=== PATIENT | female | born 1995 ===

== ENCOUNTER 2019-10-23 20:06 | Emergency (ER) | payer BC ==
[2019-10-23 20:41] VITALS: BP 110/62
[2019-10-23] MEDS ORDERED: ONDANSETRON 4 MG/2 ML INJ IV ONE (20:58)
[2019-10-23] MEDS ORDERED: SODIUM CHLORIDE 0.9% 1000 ML 1,000 ML IV ONE (20:58)
[2019-10-23] MEDS ORDERED: KETOROLAC 30 MG/1 ML INJ IV ONE (20:58)
[2019-10-23 21:27] LABS: Bacteria,Urine 2+ /HPF (Negative); Bilirubin,Urine NEG (Negative); Blood,Urine MOD (Negative); Color,Urine Yellow (Yellow); Mucus,Urine 3+ /HPF; Urobilinogen,Urine < 2.0 mg/dL (<2.0); WBC,Urine > 182.0 /HPF (0.0-6.0)
[2019-10-23 21:29] LABS: HCG Qualitative,Urine Negative (Negative)
[2019-10-23] MEDS ORDERED: cefTRIAXone/NS 1 GM/50 ML 1 GM/50 ML BAG IV ONE (21:45)
[2019-10-23] MEDS ORDERED: ACETAMINOPHEN 500 MG TAB PO ONE (21:45)
[2019-10-23 21:56] LABS: Basophils % (Auto) 0.4 % (0.0-1.8); Eosinophils % (Auto) 0.2 % (0.0-4.3); Hematocrit 37.7 % (30.3-42.9); Hemoglobin 12.8 gm/dl (10.1-14.3); Lymphocytes # (Auto) 1.3 K/mm3 (1.2-5.4); Lymphocytes % (Auto) 11.5 % (13.4-35.0); Mean Corpuscular HGB Conc 34 % (30-34); Mean Corpuscular Volume 95 fl (79-97); Monocytes # (Auto) 1.1 K/mm3 (0.0-0.8); Monocytes % (Auto) 9.4 % (0.0-7.3); Platelet Count 252 K/mm3 (140-440); Red Blood Count 3.97 M/mm3 (3.65-5.03); Red Cell Distribution Width 13.1 % (13.2-15.2)
[2019-10-23 22:31] LABS: Alanine Aminotransferase 11 units/L (7-56); Albumin 4.3 g/dL (3.9-5); BUN/Creatinine Ratio 17; Blood Urea Nitrogen 10 mg/dL (7-17); Calcium 9.1 mg/dL (8.4-10.2); Hemolysis Index 3
--- NOTE | 2019-10-23 23:54 | Emergency Department Report ---
ED Female HPI - General Chief complaint: Urogenital-Female Stated complaint: LOWER BACK PAIN Source: patient Mode of arrival: Ambulatory Limitations: No Limitations - History of Present Illness Initial comments: Patient is a nulliparous 24-year-old female with a heavy tobacco smoker, smoking up to 3 cigars/day, presents to the ED with complaint of acute onset persistent pelvic pressure and pain that radiates to the lower back with dysuria, urinary frequency and urgency, vaginal discharge, diffuse body aches and pains, chills and fever for 4 days. Patient denies vaginal bleeding, diarrhea, vomiting, chest pain or shortness of breath, nasal and sinus congestion, sore throat, cough, dizziness or syncope or vision changes. MD Complaint: vaginal discharge, dysuria, pelvic pain, other (urinary urgency and frequency; Low back pain) -: Sudden, days(s) (4) Location: suprapubic, other (lower back) Radiation: suprapubic, other (lower back) Severity: severe Severity scale (0 -10): 7 Quality: cramping, sharp Consistency: constant Improves with: none Worsens with: urination Are you Now?: No Last Menstrual Period: 10/18/19 EDC: 07/24/20 Associated Symptoms: denies other symptoms, vaginal discharge, abdominal pain (suprapubic), fever/chills, headaches, loss of appetite, dysuria. denies: vaginal bleeding, nausea/vomiting, hematuria, rash, seizure, shortness of breath, syncope, weakness, other - Related Data Sexually active: Yes : 0 Para: 0 A: 0 Previous Rx's Medication Instructions Recorded Last Taken Type Ibuprofen [Motrin 600 MG tab] 600 mg PO Q8H PRN #20 tablet 04/09/19 Unknown Rx Nitrofurantoin [place]/M-Cryst 100 mg PO Q12HR #14 capsule 04/09/19 Unknown Rx [Macrobid CAP] Ibuprofen [Motrin] 600 mg PO Q8H PRN #24 tablet 10/24/19 Unknown Rx Ondansetron [Zofran Odt] 4 mg PO Q6HR PRN #15 tab.rapdis 10/24/19 Unknown Rx cephALEXin [Keflex] 500 mg PO Q6HR #40 capsule 10/24/19 Unknown Rx metroNIDAZOLE [Flagyl] 500 mg PO Q12HR #14 tab 10/24/19 Unknown Rx Allergies Allergy/AdvReac Type Severity Reaction Status Date / Time No Known Allergies Allergy Verified 10/23/19 20:37 ED Review of Systems ROS: Stated complaint: LOWER BACK PAIN Other details as noted in HPI Constitutional: chills, fever, malaise Eyes: denies: eye pain, eye discharge, vision change ENT: denies: ear pain, throat pain Respiratory: denies: cough, shortness of breath, wheezing Cardiovascular: denies: chest pain, palpitations Endocrine: no symptoms reported Gastrointestinal: abdominal pain (suprapubic), nausea. denies: diarrhea Genitourinary: urgency, dysuria, discharge, other (suprapubic pain). denies: abnormal menses, dyspareunia Musculoskeletal: back pain (lower), arthralgia, myalgia. denies: joint swelling Skin: denies: rash, lesions Neurological: denies: headache, weakness, paresthesias Psychiatric: denies: anxiety, depression Hematological/Lymphatic: denies: easy bleeding, easy bruising ED Past Medical Hx - Past Medical History Previous Medical History?: No - Surgical History Past Surgical History?: No - Social History Smoking Status: Current Every Day Smoker Substance Use Type: Marijuana - Medications Home Medications: Home Medications Medication Instructions Recorded Confirmed Last Taken Type Ibuprofen [Motrin 600 MG tab] 600 mg PO Q8H PRN #20 tablet 04/09/19 Unknown Rx Nitrofurantoin [place]/M-Cryst 100 mg PO Q12HR #14 capsule 04/09/19 Unknown Rx [Macrobid CAP] Ibuprofen [Motrin] 600 mg PO Q8H PRN #24 tablet 10/24/19 Unknown Rx Ondansetron [Zofran Odt] 4 mg PO Q6HR PRN #15 tab.rapdis 10/24/19 Unknown Rx cephALEXin [Keflex] 500 mg PO Q6HR #40 capsule 10/24/19 Unknown Rx metroNIDAZOLE [Flagyl] 500 mg PO Q12HR #14 tab 10/24/19 Unknown Rx ED Physical Exam - General Limitations: No Limitations General appearance: alert, in no apparent distress - Head Head exam: Present: atraumatic, normocephalic, normal inspection - Eye Eye exam: Present: normal appearance, PERRL, EOMI - ENT ENT exam: Present: normal exam, normal orophraynx, mucous membranes moist, TM's normal bilaterally, normal external ear exam - Neck Neck exam: Present: normal inspection, full ROM. Absent: tenderness, lymphadenopathy - Respiratory Respiratory exam: Present: normal lung sounds bilaterally. Absent: respiratory distress, wheezes, rales, chest wall tenderness - Cardiovascular Cardiovascular Exam: Present: normal rhythm, tachycardia, normal heart sounds. Absent: systolic murmur, diastolic murmur, rubs, gallop - GI/Abdominal GI/Abdominal exam: Present: soft, tenderness (Mild suprapubic tenderness), normal bowel sounds. Absent: guarding, rebound, hyperactive bowel sounds, hypoactive bowel sounds, organomegaly - Bi-manual exam: Present: other (Pelvic exam deferred) - Extremities Exam Extremities exam: Present: normal inspection, full ROM, normal capillary refill - Back Exam Back exam: Present: normal inspection, full ROM. Absent: tenderness, CVA tenderness (R), muscle spasm, paraspinal tenderness, vertebral tenderness - Neurological Exam Neurological exam: Present: alert, oriented X3, CN II-XII intact, normal gait, reflexes normal - Psychiatric Psychiatric exam: Present: normal affect, normal mood - Skin Skin exam: Present: warm, dry, intact, normal color. Absent: rash ED Course Vital Signs 10/23/19 10/23/19 20:36 21:58 Temperature 100.7 F H Pulse Rate 95 H Respiratory 18 20 Rate Blood Pressure 110/62 O2 Sat by Pulse 99 Oximetry ED Medical Decision Making - Lab Data Result diagrams: 10/23/19 21:38 10/23/19 21:38 - Medical Decision Making This is a nulliparous 24-year-old female with a heavy tobacco smoker, smoking up to 3 cigars/day, presents to the ED with complaint of acute onset persistent pelvic pressure and pain that radiates to the lower back with dysuria, nausea, urinary frequency and urgency, vaginal discharge, diffuse body aches and pains, chills and fever for 4 days. In the ED, patient is alert and oriented x3 and is not in any distress but febrile and tachycardic in triage. Urinalysis shows significant urinary tract infection characterized by large leukocyte esterase, positive nitrites and > 182 WBCs and 2+ bacteria in the urine. The wet prep shows significant Gardnerella vaginalis, and other lab test results are nonactionable except for acute leukocytosis of 11,600. Patient received antipyretic in the ED, also received normal saline 1 L IV bolus x1, Rocephin 1 g IV and Toradol for pain and antiemetic Zofran 4 mg IV x1. On reevaluation, patient's pain is well controlled with medications, fever has resolved and tachycardia has also resolved. Patient was discharged home on medications including antibiotics and pain medications based on the finding of significant acute urinary tract infection and low-grade fever. Patient was advised to follow-up with her primary care physician or [facility] physician in 7 to 10 days for reevaluation or return to the ED immediately if symptoms get worse. - Differential Diagnosis UTI; PID; Pyelonephritis; Colitis; URI; Bronchitis; Pneumonia Critical care attestation.: If time is entered above; I have spent that time in minutes in the direct care of this critically ill patient, excluding procedure time. ED Disposition Clinical Impression: Fever with chills, Acute urinary tract infection, Bacterial vaginosis Abdominal pain Qualifiers: Abdominal location: lower abdomen, unspecified Qualified Code(s): R10.30 - Lower abdominal pain, unspecified Disposition: DC- TO HOME OR SELFCARE Is pt being admited?: No Does the pt Need Aspirin: No Condition: Stable Instructions: Bacterial Vaginosis (ED), Urinary Tract Infection in Women (ED), Fever in Adults (ED), Abdominal Pain (ED) Additional Instructions: All test results show acute urinary tract infection, and bacterial vaginosis. Therefore take medications with food, drink plenty of fluids and follow-up with your primary care physician in 7 to 10 days for reevaluation. Return to the ED immediately if symptoms get worse. Prescriptions: metroNIDAZOLE [Flagyl] 500 mg PO Q12HR #14 tab cephALEXin [Keflex] 500 mg PO Q6HR #40 capsule Ibuprofen [Motrin] 600 mg PO Q8H PRN #24 tablet PRN Reason: Pain Ondansetron [Zofran Odt] 4 mg PO Q6HR PRN #15 tab.rapdis PRN Reason: Nausea Referrals: SERA STONE MD [Staff Physician] - 7-10 days Forms: STI Treatment and Prevention Time of Disposition: 00:04 Print Language: TAJIK
== END 2019-10-24 00:20 | disposition home or self-care (01) ==
LOC: ED 20:06
DX: N39.0 Urinary tract infection, site not specified (principal); R10.9 Unspecified abdominal pain; R50.9 Fever, unspecified; N76.0 Acute vaginitis; F17.200 Nicotine dependence, unspecified, uncomplicated; F12.90 Cannabis use, unspecified, uncomplicated; Z79.899 Other long term (current) drug therapy
CPT/HCPCS: 36415; 80053; 81001; 81025; 83690; 85025; 87210; 96365; 96375; 99283; J0696; J1885; J2405; J7030